=== PATIENT | female | born 1970 | race Caucasian/White ===

== ENCOUNTER 2017-03-06 10:26 | Emergency (ER) | payer OTHER ==
[2017-03-06] MEDS ORDERED: NEURONTIN PO (10:29)
[2017-03-06] MEDS ORDERED: LINZESS72 MCG PO (10:29)
[2017-03-06 10:50] LABS: URINE SOURCE CLEAN CATCH
[2017-03-06 10:52] LABS: URINE APPEARANCE CLEAR; URINE BILIRUBIN NEG (NEG); URINE BLOOD TRACE-INTACT (NEG); URINE COLOR YELLOW; URINE GLUCOSE NEG (NORM); URINE KETONE NEG (NEG); URINE LEUKOCYTE ESTERASE NEG (NEG); URINE NITRATE NEG (NEG); URINE PH 5.5 (5-8); URINE PROTEIN NEG (NEG); URINE UROBILINOGEN 0.2 MG/DL (NORM)
[2017-03-06 10:56] LABS: MICRO INDICATED? YES
[2017-03-06 11:04] LABS: CULTURE INDICATED? NO; URINE BACTERIA NEG (NEG); URINE RBC 0-2 /[HPF] (0-2); URINE WBC 0-2 /[HPF] (0-5)
[2017-03-21] MEDS ORDERED: FLEXERIL PO (15:12)
== END 2017-03-06 13:19 | disposition home or self-care (01) ==
LOC: SED 10:26
PROVIDERS: Emergency Medicine
DX: R10.9 Unspecified abdominal pain (principal); R11.2 Nausea with vomiting, unspecified; Z88.8 Allergy status to other drugs, medicaments and biological substances; Z79.899 Other long term (current) drug therapy
CPT/HCPCS: 81003; 99284

== ENCOUNTER → 2017-03-11 | Outpatient (CLI) | payer OTHER ==
[~2017-03-11] MED LIST: FLEXERIL PO; LINZESS72 MCG PO; NEURONTIN PO
--- NOTE | ~2017-03-11 | CR181 ---
[facility]. [facility] A Service of [facility] & [facility] RADIOLOGY TEXT RESULTS PATIENT: TED MOFFETT LOCATION: [facility] : 72 UNIT #: [id number] AGE: [address]: Jeannie Ga MD SEX: F ORDER DR: [id number] [place] [id number] O MR#: [id number] Acc #: [id number] NAME: TED MOFFETT : 1970 SEX: F STUDY DATE/TIME: 03/11/2017 12:24 UNIT: [facility] ROOM: STUDY DESCRIPTION: CR Lumbar Spine 2 or 3 Views Attending Physician: Jeannie Ga M.D. Ordering Physician: Jeannie Ga M.D. Primary Care Physician: Jeannie Ga M.D. MEDICAL IMAGING REPORT This report is preliminary unless electronic signature is present. EXAM Lumbar spine 03/11/2017 HISTORY 46-year-old female complaining of 1-week history of low back pain radiating into both legs. No reported acute injury. TECHNIQUE Three-view lumbar spine series. FINDINGS Examination is negative. No acute or chronic fracture deformity or other osseous lesion. No significant lumbar disc space narrowing. Lumbar vertebral alignment is normal. Sacroiliac joints are unremarkable. IMPRESSION Negative lumbar spine series. Dictated by... Geovanny Kessler M.D. THIS IS AN ELECTRONICALLY VERIFIED REPORT Geovanny Kessler M.D. at 03/11/2017 5:46 PM KTW/page TD: 03/11/2017 17:16 JOB #: [id number] MEDICAL IMAGING REPORT Page 1 of 1
== END | disposition home or self-care (01) ==
LOC: SRAD 12:14
DX: M54.5 Low back pain (principal)
CPT/HCPCS: 72100